=== PATIENT | female | born 1990 | race Caucasian/White ===

== ENCOUNTER → 2023-10-31 08:12 | Outpatient (BNVA) | payer BC, SELFPAY | PROVIDERS: Visit Provider Nurse Practitioner Women's Health | DX: O20.9 Hemorrhage in early pregnancy, unspecified (principal); N92.6 Irregular menstruation, unspecified | CPT/HCPCS: 81025; 84702 ==

== ENCOUNTER → 2023-11-12 08:48 | Outpatient (BNVA) | payer BC, SELFPAY | PROVIDERS: Visit Provider Nurse Practitioner Women's Health | DX: Z36.9 Encounter for antenatal screening, unspecified (principal) | CPT/HCPCS: 76801 ==

== ENCOUNTER → 2023-11-15 07:56 | Outpatient (BNVA) | payer BC, SELFPAY | PROVIDERS: Visit Provider Nurse Practitioner Women's Health | DX: O09.899 Supervision of other high risk pregnancies, unspecified trimester (principal) | CPT/HCPCS: 80307; 84315; 84443; 85025; 86592; 86762; 86803; 86850; 86900; 87086; 87340; 87806 ==

== ENCOUNTER → 2023-12-05 09:08 | Outpatient (BNVA) | payer BC, SELFPAY | PROVIDERS: Visit Provider Nurse Practitioner Women's Health | DX: O09.899 Supervision of other high risk pregnancies, unspecified trimester (principal); Z36.9 Encounter for antenatal screening, unspecified | CPT/HCPCS: 76801; 84315; 87491; 87591 ==

== ENCOUNTER → 2023-12-20 08:09 | Outpatient (BNVA) | payer BC, SELFPAY | PROVIDERS: Visit Provider Nurse Practitioner Women's Health | DX: O09.899 Supervision of other high risk pregnancies, unspecified trimester (principal); R35.0 Frequency of micturition | CPT/HCPCS: 82105; 84315; 87086 ==

== ENCOUNTER → 2024-01-16 14:05 | Outpatient (BNVA) | payer BC, SELFPAY | PROVIDERS: Visit Provider Obstetrics & Gynecology | DX: O09.899 Supervision of other high risk pregnancies, unspecified trimester (principal) | CPT/HCPCS: 76805 ==

== ENCOUNTER → 2024-01-24 08:16 | Outpatient (BNVA) | payer BC, SELFPAY | PROVIDERS: Visit Provider Obstetrics & Gynecology | DX: O09.899 Supervision of other high risk pregnancies, unspecified trimester (principal) | CPT/HCPCS: 84315 ==

== ENCOUNTER → 2024-02-17 10:00 | Outpatient (BNVA) | payer BC, SELFPAY | PROVIDERS: Visit Provider Nurse Practitioner Women's Health | DX: O09.899 Supervision of other high risk pregnancies, unspecified trimester (principal) | CPT/HCPCS: 82950; 84315 ==

== ENCOUNTER → 2024-03-11 10:26 | Outpatient (BNVA) | payer BC, SELFPAY | PROVIDERS: Visit Provider Obstetrics & Gynecology | DX: O09.899 Supervision of other high risk pregnancies, unspecified trimester (principal); Z36.9 Encounter for antenatal screening, unspecified | CPT/HCPCS: 76816; 84315; 85025 ==

== ENCOUNTER → 2024-05-06 08:16 | Outpatient (BNVA) | payer BC, MEDICAID, SELFPAY | PROVIDERS: Visit Provider Nurse Practitioner Women's Health | DX: Z36.9 Encounter for antenatal screening, unspecified (principal) | CPT/HCPCS: 76816 ==

== ENCOUNTER → 2024-05-08 13:46 | Outpatient (BNVA) | payer BC, MEDICAID, SELFPAY | PROVIDERS: Visit Provider Obstetrics & Gynecology | DX: O09.899 Supervision of other high risk pregnancies, unspecified trimester (principal) | CPT/HCPCS: 84315; 87081 ==

== ENCOUNTER 2024-05-13 16:12 | Outpatient (CLI) | payer BC, MEDICAID, SELFPAY ==
[2024-05-13] VITALS (14 sets, daily range): BP systolic 99–140; BP diastolic 62–93; PULSE 82–111; TEMP 36.1; BMI 25.9
[2024-05-13 16:53] LABS: Actim Prom Negative
[2024-05-13 20:53] LABS: Bilirubin Urine Negative (Negative); Blood Urine Negative (Negative); Glucose Urine UA Negative (Normal); Ketones Urine Trace (Negative); Leukocyte Esterase Urine Negative (Negative); Nitrate Urine Negative (Negative); Protein Urine Negative (Negative); Specific Gravity, Urine 1.014 (1.005-1.030); Urine Appearance Clear (CLEAR); Urine Color Yellow (Yellow); pH Urine 7.5 (5-7)
[2024-05-13 20:58] LABS: Add Urine Microscopic? YES; Bacteria Urine None Seen /hpf; Hyaline Casts Urine 0-4 /lpf; RBC Urine 0-2 /hpf (0-2); Squamous Epithelial Cell Urine 0-5 /hpf (0-5); WBC Urine 0-5 /hpf (0-5)
[2024-05-13] MEDS: BuSPIRONE 10 mg Tablet PO (22:57)
[2024-05-13 23:57] LABS: Nitrazine Paper, PH Negative
[2024-05-14 00:05] VITALS: BP 124/77; PULSE 99
[2024-05-14 02:02] VITALS: BP 114/70; PULSE 83
[2024-05-14 03:58] VITALS: BP 106/73; PULSE 93
[2024-05-14 03:59] VITALS: TEMP 36.1
[2024-05-14 06:03] VITALS: BP 112/70; PULSE 82; TEMP 35.8
[2024-05-14 07:40] VITALS: BP 108/59; PULSE 77
--- NOTE | 2024-05-14 08:32 | P.TNLD_ITS ---
OB L&D Triage Visit Information: Date of evaluation: 05/14/24 Comments/Additional reason(s) for visit: Mrs. Lopez 33-year-old female G4, P2012 with an estimated gestational age at 37 weeks came to labor and delivery with chief complaint of contractions. For observation in labor and delivery due to an hour and a half drive from home. No cervical changes were noted. Evaluation: monitor accelerations: Present 15x15 station: -3 Laboratory results: Laboratory Tests 05/13/24 05/13/24 05/13/24 16:28 16:30 20:15 Insulin-like GF I Negative Urine Color Yellow Urine Appearance Clear Urine pH 7.5 Ur Specific Gravit y 1.014 Urine Protein Negative Urine Glucose (UA) Negative Urine Ketones Trace Urine Blood Negative Urine Nitrate Negative Urine Bilirubin Negative Urine Urobilinogen 1.0 Ur Leukocyte Lucy ase Negative Urine RBC 0-2 Urine WBC 0-5 Ur Squamous Epith Cells 0-5 Amorphous Sediment Not Reportable Urine Bacteria None seen Hyaline Casts 0-4 H Fluid pH (paper) Negative Vital signs: Vital Signs - 24 hr 05/13/24 16:27 05/13/24 16:43 05/13/24 16:57 Temperature Pulse Rate 111 H 90 89 Blood Pressure 140/93 132/84 128/81 Oxygen Delivery Me thod 05/13/24 17:13 05/13/24 17:42 05/13/24 18:18 Temperature Pulse Rate 90 90 85 Blood Pressure 117/80 118/82 118/79 Oxygen Delivery Me thod 05/13/24 18:32 05/13/24 18:46 05/13/24 19:03 Temperature Pulse Rate 83 109 H 86 Blood Pressure 126/72 123/69 110/62 Oxygen Delivery Me thod 05/13/24 19:16 05/13/24 19:29 05/13/24 19:32 Temperature Pulse Rate 86 84 Blood Pressure 105/65 99/69 Oxygen Delivery Me thod Room Air 05/13/24 19:47 05/13/24 20:02 05/13/24 21:57 Temperature 97.0 F L Pulse Rate 82 96 105 H Blood Pressure 117/67 107/63 112/75 Oxygen Delivery Me thod 05/14/24 00:05 05/14/24 02:02 05/14/24 03:58 Temperature Pulse Rate 99 83 93 Blood Pressure 124/77 114/70 106/73 Oxygen Delivery Me thod 05/14/24 03:58 05/14/24 03:59 05/14/24 06:03 Temperature 97.0 F L 96.4 F L Pulse Rate 82 Blood Pressure 112/70 Oxygen Delivery Me thod Room Air 05/14/24 06:33 05/14/24 07:40 Temperature Pulse Rate 77 Blood Pressure 108/59 Oxygen Delivery Me thod Room Air Care NEVA Calculator Estimated Delivery Date Method Current WG Current Estimate 06/03/24 Ultrasound #1 37w 1d Other Estimates 05/10/24 LMP (Uncertain) 40w 4d Specific Issues/Plans * Anxiety/depression * Subchorionic bleed; resolved at 12 weeks * Galactosemia carrier -- FOB being tested * Low-lying placenta--reassess at 28 weeks Final Diagnosis Final Diagnosis (1) False labor after 37 weeks of gestation without delivery: Plan: Continue care as scheduled Status: Acute Code(s): O47.1 - False labor at or after 37 completed weeks of gestation Coding Level of Care Code Acute Code for Chg Fwd Diagnoses False labor after 37 weeks of gestation without delivery O47.1
== END 2024-05-14 08:40 | disposition home or self-care (01) ==
LOC: OPOB 16:13 → OBGYN 16:14
PROVIDERS: Visit Provider Obstetrics & Gynecology
DX: O47.1 False labor at or after 37 completed weeks of gestation (principal); Z3A.37 37 weeks gestation of pregnancy
CPT/HCPCS: 59025; 81001; 83986; 84112; 99211

== ENCOUNTER 2024-05-21 08:39 | Outpatient (CLI) | payer BC, MEDICAID, SELFPAY ==
[2024-05-21] VITALS (11 sets, daily range): BP systolic 97–118; BP diastolic 56–79; PULSE 76–93; RESP 17; BMI 25.2
== END 2024-05-21 14:00 | disposition home or self-care (01) ==
LOC: OPOB 08:40 → OBGYN 08:40
PROVIDERS: Visit Provider Obstetrics & Gynecology
DX: O26.899 Other specified pregnancy related conditions, unspecified trimester (principal); Z3A.00 Weeks of gestation of pregnancy not specified; R10.9 Unspecified abdominal pain
CPT/HCPCS: 59025; 99211

== ENCOUNTER 2024-05-23 10:54 | Inpatient (IN) | payer BC, MEDICAID, SELFPAY ==
[2024-05-22] VITALS (11 sets, daily range): BP systolic 97–125; BP diastolic 61–87; PULSE 71–106; BMI 25.8
[2024-05-22 20:31] LABS: Basophils # 0.1 10^3/uL (0.0-0.1); Basophils % 0.4 %; Eosinophils % 0.3 %; Hematocrit 36.2 % (36-47); Lymphocytes # 1.6 10^3/uL (0.8-4.8); Lymphocytes % 10.4 %; Mean Corpuscular HGB Conc 31.5 g/dL (30-55); Mean Corpuscular Hemoglobin 25.7 pg (27-33); Mean Corpuscular Volume 81.7 fl (85-98); Mean Platelet Volume 12.8 fL (7.4-10.4); Monocytes # 0.7 10^3/uL (0.2-0.9); Monocytes % 4.5 %; Neutrophils % 83.7 %; Nucleated Red Blood Cells % 0 %; Platelet Count 196 10^3/cmm (157-399); Red Blood Count 4.43 10^6/uL (3.85-5.65); Red Cell Distribution Width 13.3 % (12.1-15.1); White Blood Count 14.94 10^3/uL (3.29-11.43)
[2024-05-23] VITALS (75 sets, daily range): BP systolic 88–158; BP diastolic 52–119; PULSE 63–173; RESP 16; TEMP 25.3–36.7; O2SAT 89–100
--- NOTE | 2024-05-23 04:56 | PM.OPHPUD ---
Labor & Delivery H&P Update Date of Procedure: May 23, 2024 Date H&P Performed: 05/13/24 Changes to previous documentation: 33-year-old female G4, P2 Ab1 at 38.3 weeks gestation observed on labor and delivery for extended period of time due to irregular contractions. Patient's was 5 cm on presentation to labor and delivery. Patient lives greater than an hour away from the hospital and requested to stay for an extended period. Patient cervix progressed to 6 cm therefore patient was admitted. I discussed with patient early labor and slow progression. Discussed AROM and possible augmentation with Pitocin, to increase contraction frequency and intensity. Patient understood and agreed. Family at bedside. Review of records, history of marginal placenta previa?ultrasound 05/06/2025 shows resolution of placenta previa with placenta greater than 8 cm away from cervical os. EFM?category 1 Irregular uterine contractions every 4 to 8 minutes. Cervix?5 cm / 70%/-1 vertex presentation with bulging membranes. AROM?blood-tinged fluid. Admission Diagnosis: Preop diagnosis: 38.3 weeks gestation in early labor Primary indication for procedure: Early labor Patient lives greater than 1 hour from the hospital Planned procedure: Admission to labor and delivery Possible augmentation of labor
[2024-05-23] MEDS: sodium chloride 0.9% 1,000 ML 999 ML IV (07:16)
[2024-05-23] MEDS: hyDROXYzine 25 mg Capsule 50 MG PO ×2 (08:58→21:42)
[2024-05-23] MEDS: dextrose 5%-sod chloride 0.45% 1,000 ML 125 ML IV (09:00)
[2024-05-23] MEDS: ROPivacaine syringe 100 MG/50 ML SYRINGE 10 MG EPIDURAL (09:05)
--- NOTE | 2024-05-23 09:24 | P.ANESASSM_ITS ---
Pre-Anesthetic Assessment Height/Weight: Height 1.75 m Weight 79.379 kg Temp Pulse BP Pulse Ox O2 Del Method 98.0 F 99 122/75 100 Room Air 05/23/24 01:51 05/23/24 09:21 05/23/24 09:21 05/23/24 09:19 05/22/24 19:37 Preop Diagnosis: 38.3 weeks gestation in early labor Epidural Familial anesthetic complications: None Was Beta Lindsay taken within 24 hours: N/A Was Clonidine taken within 24 hours: N/A Social No alcohol and No tobacco Exam alert, oriented x 3, clear to auscultation bilaterally and regular rate & rhythm Anesthetic Plan ASA status: 2 Anesthesia: Regional (specify below) Risk of > 500 ml blood loss (7ml/kg in children): No Medications/Allergies Home Medications Medication Instructions Recorded Confirmed Last Taken Type buspirone 10 mg tablet 10 mg PO BID #60 tabs 02/17/24 05/22/24 Unknown Rx sertraline 50 mg tablet 50 mg PO DAILY #30 tabs 02/17/24 05/22/24 Unknown Rx Allergies Allergy/AdvReac Type Severity Reaction Status Date / Time No Known Allergies Allergy Verified 05/22/24 09:53 Current Medications Generic Name Dose Route Start Last Admin Trade Name Freq PRN Reason Stop Dose Admin Hydroxyzine Pamoate 50 mg 05/22/24 20:03 05/23/24 08:58 Hydroxyzine 25 Mg Capsule PO 50 mg QID PRN Administration sleep, agitation or itching Sodium Chloride 1,000 mls @ 999 mls/hr 05/23/24 07:09 05/23/24 07:16 Sodium Chloride 0.9% IV 999 mls/hr .Q1H1M PRN Administration See label comments PFSH Anesthesia Medical History No pertinent past medical history neghx: htn,dm,thryoid,dvt/pe 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 Surgical History History of surgery on arm H/O dilation and curettage (~2016) SAB retained products H/O hand surgery Family History Grandmother Breast cancer Hyperlipidemia Hypertension Family/Other Breast cancer maternal uncle maternal x2 aunts Stroke uncle Grandfather Heart disease Hyperlipidemia Hypertension Mother Hyperlipidemia Hypertension Father Hyperlipidemia Hypertension Stroke Denies family history of Colon cancer Ovarian cancer Prostate cancer Diabetes Uterine cancer Thyroid disease Social History Smoking and tobacco/nicotine status: former use of tobacco/nicotine Female Reproductive History : 4 Data Anesthesia 05/22/24 19:55 Short CBC 05/22/24 Range/Units 19:55 WBC 14.94 H (3.29-11.43) 10^3/uL Hgb 11.40 (11.27-16.99) g/dL Hct 36.2 (36-47) % MCV 81.7 L (85-98) fl Plt Count 196 (157-399) 10^3/cmm Neut % (Auto) 83.7 % Neut # (Auto) 12.50 H (1.8-7.7) 10^3/uL Blood Bank 05/22/24 19:55 Blood Type AB Positive Rho(D) Type Rh positive Antibody Screen Negative Cardiac Studies: 2 No Data to Display
--- NOTE | 2024-05-23 09:26 | ANES.PROC ---
Anesthesia Procedures Procedure/Date: 05/23/24 Epidural: Time Out Performed: Yes Consents Signed: Procedure Consent Consent: requested by attending/covering physician, from patient, from other, risks and benefits reviewed and patient agrees to proceed Lumbar Level: L3-L4 Epidural position: sitting Epidural procedure: sterile prep of area, 1% lidocaine to numb the area, 18 g needle, negative for paresthesia passed, neg for paresthesia, test dose given, 1.5% xylocaine 1:200k epi (5), placed PCEA, no systemic response, sterile dressing applied, L.U.D. no apparent complications and 0.2% Ropiavacaine @ mls/hr (10) Additional Comments: TALIB at 5 cm, threaded to 11 cm Patient's HR up to 160s staying up at 120s, states its anxiety, administered another 15 mcg of epi via epidural and HR decreased to 120s. Started pump with no bolus. Informed nursing staff, if HR climbs to 150 again to inform OB.
[2024-05-23] MEDS: oxytocin 30 UNIT/500 ML BAG IV (10:53)
--- NOTE | 2024-05-23 12:35 | P.PCNOB_ITS ---
Delivery Note: Date of delivery: May 23, 2024 Pre-delivery diagnoses: 38wk IUP in early labor Carrier of galactosemia History of anxiety and depression Procedure: viable female Op report anesthesia: Epidural Estimated blood loss (mL): 500 Findings: Port wine stain blood with large clots on the placenta Viable female 6 pounds 14 Delivery: 33-year-old delivered via of v iable female from the OA presentation. The vertex presented followed by the anterior then posterior shoulders with the remainder the baby's body to follow. After delaying of the cord clamp the cord was clamped and cut and baby placed on the maternal abdomen for bonding. Cord pH and cord blood were drawn and handed off. The uterus was massaged Pitocin added to IV fluid and infused in a bolus manner. The placenta presented in a Huang presentation with trailing membranes and a large clot expressed from the uterus. The placenta was evaluated and a large clot also noted in the lateral margin with moderate amounts of calcification present in the placental tissue. The cervix and vaginal vault were explored as well as the perineum. A second- degree midline laceration was noted and repaired with 2-0 Vicryl with good anatomical zoroastrianism. The uterus was massaged and firmed well. Perineum cleansed bed reassembled. Patient in stable and satisfactory condition. Weight?6 pounds 14 EBL?500 complications?none Post-Delivery Status: Stable History History History 4 Term 3 0 Miscarriages/Ectopic 1 Living Children 3 A&P Assessment and plan (1) 38 weeks gestation of : (2) Spontaneous vaginal delivery: Began care (3) Carrier of galactosemia: (4) Anxiety and depression: Continue home meds (5) Supervision of other high-risk : Coding Level of Care Code Acute Code for Chg Fwd Diagnoses 38 weeks gestation of Z3A.38 Spontaneous vaginal delivery O80 Carrier of galactosemia Z14.8 Anxiety and depression F41.9; F32.A Supervision of other high-risk O09.899
[2024-05-23] MEDS: ibuprofen 800 mg tablet PO ×2 (15:08→20:30)
[2024-05-23] MEDS: docusate sodium 100 mg Capsule PO (17:47)
[2024-05-24 03:06] LABS: Hematocrit 25.1 % (36-47); Mean Corpuscular HGB Conc 32.7 g/dL (30-55); Mean Corpuscular Hemoglobin 26.9 pg (27-33); Mean Corpuscular Volume 82.3 fl (85-98); Mean Platelet Volume 12.9 fL (7.4-10.4); Platelet Count 145 10^3/cmm (157-399); Red Blood Count 3.05 10^6/uL (3.85-5.65); Red Cell Distribution Width 13.6 % (12.1-15.1); White Blood Count 15.44 10^3/uL (3.29-11.43)
[2024-05-24 06:15] VITALS: BP 101/62; PULSE 86; RESP 17; TEMP 36.6; O2SAT 99
[2024-05-24] MEDS: ibuprofen 800 mg tablet PO (09:05)
[2024-05-24] MEDS: docusate sodium 100 mg Capsule PO (09:06)
[2024-05-24] MEDS: PRENATAL VIT NO.130/IRON/FOLIC 1 EACH TABLET PO (09:06)
[2024-05-24 09:07] VITALS: BP 100/68; PULSE 58; RESP 17; TEMP 36.8; O2SAT 98
--- NOTE | 2024-05-24 10:07 | PM.OBGYDC ---
Discharge Providers RECOVERY OPERATOR HELPER Date of Admission: 05/23/24 10:54 Date of Discharge: 05/24/24 Attending Provider at Admission: Ila Torres DO Attending Provider at Discharge: Ila Torres DO Primary RECOVERY OPERATOR HELPER: Dr. Johnson Diagnoses at Discharge Discharge Diagnosis (1) 38 weeks gestation of : Details from hospital stay: 33-year-old female G4, P3 delivered via at 38.4 weeks gestation. Patient denies any problems, she is ambulating, tolerating a regular diet and voiding. Patient is breast-feeding without difficulties. She denies headaches, blurred vision, chest pain or shortness of breath. She also denies excessive vaginal bleeding. and discharge expectations have been reviewed to include excessive bleeding, chest pain and shortness of breath or extremity pain patient is to call labor and delivery or her clinic for medical advice are visit the emergency room. Patient has been encouraged to continue home meds, ibuprofen if needed for abdominal cramping, and to continue her vitamins throughout breast-feeding. asymptomatic anemia has been discussed and again advised patient to continue her vitamins. Status: Acute (2) Spontaneous vaginal delivery: Status: Acute (3) Carrier of galactosemia: Status: Acute (4) Anxiety and depression: Status: Acute (5) Supervision of other high-risk : Status: Acute Reason for Visit Reason for Visit: Contractions Hospital Course Hospital Course See above Information Peripartum Data: Infant Delivery Method: Vaginal Additional Peripartum Information: See delivery note Physical Exam Narrative: 33-year-old female alert and orient x 3 no acute distress Cardio: COMMON NORMALS: regular rate and regular rhythm RATE: regular rate RHYTHM: regular rhythm Back/Pelvis: OTHER: Abdomen?soft, fundus firm. Lochia light. Extremity: COMMON NORMALS: normal to inspection, no clubbing, cyanosis or edema and no calf tenderness Urinary Catheter Management: Nelson: Cath Placed During This Visit: yes, but has since been removed by the nurse Reason for Continuing Indwelling Catheter: Decision to DC Catheter Urinary Catheter Date of Insertion: 05/23/24 Urinary Catheter Time of Insertion: 09:30 Date Urinary Catheter Removed: 05/23/24 Time Urinary Catheter Discontinued: 11:54 History History History 4 Term 3 0 Miscarriages/Ectopic 1 Living Children 3 Discharge Data Studies Completed and Pending Pending at discharge Category Date Time Status Pathology: Surgical [PTH] Routine Pth 05/23/24 13:39 Ordered Laboratory Results WBC 15.44 10^3/uL (3.29-11.43) H 05/24/24 02:31 RBC 3.05 10^6/uL (3.85-5.65) L 05/24/24 02:31 Hgb 8.20 g/dL (11.27-16.99) L 05/24/24 02:31 Hct 25.1 % (36-47) L 05/24/24 02:31 MCV 82.3 fl (85-98) L 05/24/24 02:31 MCH 26.9 pg (27-33) L 05/24/24 02:31 MCHC 32.7 g/dL (30-55) 05/24/24 02:31 RDW 13.6 % (12.1-15.1) 05/24/24 02:31 Plt Count 145 10^3/cmm (157-399) L 05/24/24 02:31 MPV 12.9 fL (7.4-10.4) H 05/24/24 02:31 Neut % (Auto) 83.7 % 05/22/24 19:55 Lymph % (Auto) 10.4 % 05/22/24 19:55 [place] % (Auto) 4.5 % 05/22/24 19:55 Eos % (Auto) 0.3 % 05/22/24 19:55 Baso % (Auto) 0.4 % 05/22/24 19:55 Neut # (Auto) 12.50 10^3/uL (1.8-7.7) H 05/22/24 19:55 Lymph # (Auto) 1.6 10^3/uL (0.8-4.8) 05/22/24 19:55 [place] # (Auto) 0.7 10^3/uL (0.2-0.9) 05/22/24 19:55 Eos # (Auto) 0.0 10^3/uL (0.0-0.8) 05/22/24 19:55 Baso # (Auto) 0.1 10^3/uL (0.0-0.1) 05/22/24 19:55 Nucleated RBC % (auto) 0 % 05/22/24 19:55 Nucleated RBCs # 0.0 /100WBC 05/22/24 19:55 Blood Type AB Positive 05/22/24 19:55 Rho(D) Type Rh positive 05/22/24 19:55 Antibody Screen Negative 05/22/24 19:55 Vitals Last Vital Signs Temp 98.2 F 05/24/24 09:07 Pulse 58 L 05/24/24 09:07 Resp 17 05/24/24 09:07 BP 100/68 05/24/24 09:07 Pulse Ox 98 05/24/24 09:07 O2 Del Method Room Air 05/24/24 09:07 Results Labs OB ([facility]): Obstetrics US 05/06/24 Blood Type AB Positive 05/22/24 Antibody Screen Negative 05/22/24 Hct 25.1 % (36-47) L 05/24/24 Hgb 8.20 g/dL (11.27-16.99) L 05/24/24 Rho(D) Type Rh positive 05/22/24 Plt Count 145 10^3/cmm (157-399) L 05/24/24 Hep Bs Antigen Non-reactive (Nonreactive) 11/15/23 Hepatitis C Antibody Non-reactive (Nonreactive) 11/15/23 Rubella IgG Antibody 94.1 IU/mL (0.0-10.0) H 11/15/23 RPR Nonreactive (Nonreactive) 11/15/23 HIV 1&2 Ab & HIV 1 Ag Non-reactive (Non-Reactiv) 11/15/23 TSH 1.04 uIU/mL (0.27-4.20) 11/15/23 C.trachomatis RNA (TMA) Not detected (NOT DETECTED) 12/05/23 N.gonorrhoeae RNA (TMA) Not detected (NOT DETECTED) 12/05/23 T. vaginalis Amp RNA Not detected (NOT DETECTED) 12/05/23 Chlamydia/GC Comment See note 12/05/23 Cystic Fibrosis Screen Galactosemia 11/15/23 Glucose 1 Hr 50 gm 108 mg/dL (85-140) 02/17/24 Ser , Semi-Qnt 064549.00 mIU/mL 10/31/23 HCG, Qual Positive (Negative) H 10/31/23 Urine Opiates Screen Negative ng/mL (Negative) 11/15/23 Ur Barbiturates Screen Negative ng/mL (Negative) 11/15/23 Ur Phencyclidine Scrn Negative ng/mL (Negative) 11/15/23 Ur Amphetamines Screen Negative ng/mL (Negative) 11/15/23 U Benzodiazepines Scrn Positive ng/mL (Negative) H 11/15/23 Urine Cocaine Screen Negative ng/mL (Negative) 11/15/23 U Marijuana (THC) Screen Negative ng/mL (Negative) 11/15/23 Micro Urine Specimen 12/20/23 Discharge Plan Discharge Patient Disposition: Home, Self-Care w Plan Readm Condition: Stable Prescriptions: No Action sertraline 50 mg tablet 50 mg PO DAILY Qty: 30 6RF buspirone 10 mg tablet 10 mg PO BID Qty: 60 5RF Discharge Orders: Discharge Order (Routine); Ordered 05/24/24 Ordered By: Ila Torres Discharge Diet: Regular Discharge Activity: Increase activity as tolerated Patient Instructions: Opioid Safety Activity Restrictions/Additional Instructions: No strenuous activity. No sexual intercourse x 6 weeks. Continue vitamins throughout breast-feeding. Assessment: S/p Asymptomatic anemia Plan of Treatment: Discharge patient to home Patient to follow-up in 4 to [address] Johnosn Discharge Attestations RECOVERY OPERATOR HELPER Time Spent in Discharge Care*: less than 30 min Coding Level of Care Code Acute Code for Chg Fwd Diagnoses 38 weeks gestation of Z3A.38 Spontaneous vaginal delivery O80 Carrier of galactosemia Z14.8 Anxiety and depression F41.9; F32.A Supervision of other high-risk O09.899
[2024-05-24 12:40] VITALS: BP 116/84; PULSE 94; RESP 16; TEMP 36.7
[2024-05-24 12:43] VITALS: BP 116/84; PULSE 94; RESP 16; TEMP 36.7; O2SAT 98
--- NOTE | 2024-05-25 12:51 | ANE.PACU2 ---
Inpatient post-anesthesia follow up: Airway intact: Yes Vital signs: Temperature 98.0 F Pulse Rate 94 Respiratory Rate 16 Blood Pressure 116/84 Pulse Oximetry 98 Oxygen Delivery Me thod Room Air Oxygen Flow Rate Fraction of Inspir ed Oxygen Hydration adequate: Yes Nausea and vomiting: No Pain level: 2 Mental status: Baseline
== END 2024-05-24 12:43 | disposition home or self-care (01) | DRG 807 ==
LOC: OPOB 10:55 → OBGYN 10:55
PROVIDERS: Admitting Provider Obstetrics & Gynecology; Visit Provider Obstetrics & Gynecology
DX: O99.344 Other mental disorders complicating childbirth (principal); Z37.0 Single live birth; F41.9 Anxiety disorder, unspecified; F32.A Depression, unspecified; O70.1 Second degree perineal laceration during delivery; Z3A.38 38 weeks gestation of pregnancy
CPT/HCPCS: 36415; 51702; 59025; 59409; 84315; 85025; 85027; 86850; 86900; 99211; J2590; J2795; J7030; J7799